=== PATIENT | female | born 1985 | race Asian ===

== ENCOUNTER 2017-06-30 19:00 | Inpatient (IN) | payer SELFPAY ==
[~2017-06-30] VITALS: Ht 154.9 cm; Wt 73.5 kg
[2017-06-30] MEDS ORDERED: TERBUTALINE 1 MG/ML VIAL SUBQ ONE ×2 (19:03→20:48)
[2017-06-30] MEDS ORDERED: NALBUPHINE HYDROCHLORIDE 10 MG/ML VIAL ONE ×2 (19:03→22:00)
[2017-06-30] MEDS ORDERED: METF500T2 PO (20:39)
[2017-06-30] MEDS ORDERED: OXYTOCIN 20 UNITS in LACTATED RINGERS 1,000 ML IV SCH ×2 (21:13→23:25)
[2017-06-30] MEDS ORDERED: NALBUPHINE 10 MG/ML AMP IVP PRN (21:15)
[2017-06-30] MEDS ORDERED: IBUPROFEN 800 MG TAB PO PRN ×2 (21:15→23:25)
[2017-06-30] MEDS ORDERED: CARBOPROST 250 MCG/ML AMP IM PRN (21:15)
[2017-06-30] MEDS ORDERED: TERBUTALINE 1 MG/ML VIAL SUBQ SCH (21:15)
[2017-06-30] MEDS ORDERED: METHYLERGONOVINE 0.2 MG/ML AMP IM PRN ×2 (21:15→23:25)
[2017-06-30] MEDS ORDERED: CITRIC ACID/SODIUM CITRATE 30 ML UDC PO ONE (21:20)
[2017-06-30] MEDS: LACTATED RINGERS 1,000 ML IV SCH ×2 (21:53→21:55)
[2017-06-30 22:18] LABS: CARBON DIOXIDE 17.1 mmol/L (21-32); CREATININE 1.3 mg/dL (0.6-1.3); POTASSIUM 3.1 mmol/L (3.5-5.1)
[2017-06-30 22:25] LABS: ALBUMIN 3.2 g/dL (3.4-5.0); TOTAL BILIRUBIN 0.4 mg/dL (0.0-1.0)
[2017-06-30 22:25] LABS: APPEARANCE,URINE CLEAR (CLEAR); BILIRUBIN,URINE NEGATIVE (NEGATIVE); BLOOD, URINE TRACE-L (NEGATIVE); COLOR,URINE YELLOW (YELLOW); LEUKOCYTE ESTERASE ,URINE NEGATIVE (NEGATIVE); NITRITE, URINE NEGATIVE (NEGATIVE); PH,URINE 5.5 (5.0-9.0); UGLUCOSE NEGATIVE (NEGATIVE)
[2017-06-30 22:43] VITALS: BP 119/63
[2017-06-30] MEDS ORDERED: TEMAZEPAM 15 MG CAP PO PRN (23:25)
[2017-06-30] MEDS ORDERED: MEASLES, MUMPS, AND RUBELLA 1 VIAL SQVAC PRN (23:25)
[2017-06-30] MEDS ORDERED: SIMETHICONE 80 MG TAB.CHEW PO PRN (23:25)
[2017-06-30] MEDS ORDERED: TRIMETHOBENZAMIDE 200 MG/2 ML SYR IM PRN (23:25)
[2017-06-30 23:53] LABS: RED BLOOD CELL COUNT(AUTO) 4.97 MIL/uL (4.20-5.40)
[2017-06-30 23:54] LABS: HEMOGLOBIN 15.2 g/dL (12.0-16.0); MEAN CORPUSCULAR HEMOGLOBIN 31 pg (27-31); MEAN CORPUSCULAR HGB CONC 34 g/dL (33-37); PLATELET COUNT (AUTO) 168 K/uL (140-450); RED CELL DISTRIBUTION WIDTH 12.9 % (11.6-13.7)
[2017-06-30 23:56] LABS: LYMPHOCYTES % (MANUAL) 2 % (20-46); MONOCYTES % (MANUAL) 4 % (5-12)
[2017-07-01] MEDS ORDERED: ceFAZolin 1,000 MG VIAL ONE (01:01)
[2017-07-01] MEDS ORDERED: TRIAMCINOLONE 40 MG/ML 5ML VIAL ONE (01:02)
[2017-07-01] MEDS ORDERED: OXYTOCIN 10 UNITS/ML VIAL ONE ×2 (01:02→09:55)
[2017-07-01] MEDS ORDERED: METHYLERGONOVINE 0.2 MG/ML AMP ONE (01:02)
[2017-07-01] MEDS ORDERED: MIDAZOLAM 2 MG/2 ML VIAL ONE (01:05)
[2017-07-01] MEDS ORDERED: MORPHINE PRES FREE 10 MG/10 ML AMP IV ONE (01:05)
[2017-07-01] MEDS ORDERED: BUPIVACAINE-MPF 0.75% 10 ML VIAL INJ ONE (01:10)
[2017-07-01] MEDS ORDERED: ONDANSETRON 4 MG/2 ML VIAL IVP PRN ×2 (01:55)
[2017-07-01] MEDS ORDERED: NALBUPHINE 10 MG/ML AMP IVP PRN (01:55)
[2017-07-01] MEDS ORDERED: NALOXONE 0.4 MG/ML VIAL IVP PRN ×3 (01:55)
[2017-07-01] MEDS ORDERED: diphenhydrAMINE 50 MG/ML VIAL IVP PRN ×2 (01:55)
[2017-07-01] MEDS ORDERED: MEPERIDINE 25 MG/ML SYR IVP PRN (01:55)
[2017-07-01] MEDS ORDERED: HYDROmorphone 1 MG/ML AMP IVP PRN (01:55)
[2017-07-01] MEDS: OXYTOCIN 20 UNITS in LACTATED RINGERS 1,000 ML IV SCH ×3 (02:10→17:25)
[2017-07-01 02:34] LABS: RBC,URINE 0-5 (RARE) /HPF (0-5); WBC,URINE 0-5 (RARE) /HPF (0-5)
[2017-07-01] MEDS ORDERED: ONDANSETRON 4 MG/2 ML VIAL ONE (02:34)
[2017-07-01] MEDS: KETOROLAC 30 MG/ML VIAL IM/IVP SCH ×3 (05:59→18:06)
--- NOTE | 2017-07-01 09:53 | NUR ---
PATIENT HAS BEEN SCREENED AND CATEGORIZED LOW NUTRITION RISK. PATIENT WILL BE SEEN WITHIN 7 DAYS OF ADMISSION. 07/07/[address]
[2017-07-01] MEDS: DOCUSATE SOD/SENNA 50/8.6 MG 1 TAB PO SCH (20:51)
[2017-07-02] MEDS: oxyCODONE/APAP 5/325 MG 1 TAB TAB PO PRN ×3 (02:10→14:17)
[2017-07-02 06:44] LABS: HEMOGLOBIN 11.7 g/dL (12.0-16.0); MEAN CORPUSCULAR HEMOGLOBIN 31 pg (27-31); MEAN CORPUSCULAR HGB CONC 34 g/dL (33-37); MEAN CORPUSCULAR VOLUME 91.8 fL (80-94); PLATELET COUNT (AUTO) 119 K/uL (140-450); RED BLOOD CELL COUNT(AUTO) 3.81 MIL/uL (4.20-5.40); RED CELL DISTRIBUTION WIDTH 13.2 % (11.6-13.7)
[2017-07-02 07:31] LABS: LYMPHOCYTES % (MANUAL) 15 % (20-46); MONOCYTES % (MANUAL) 5 % (5-12)
[2017-07-02 09:07] LABS: HEPATITIS B SURFACE ANTIGEN Negative (Negative)
[2017-07-02] MEDS: DOCUSATE SOD/SENNA 50/8.6 MG 1 TAB PO SCH (21:01)
[2017-07-02] MEDS: HYDROcodone/APAP 5/325 MG 1 TAB TAB PO PRN (21:51)
[2017-07-03] MEDS: HYDROcodone/APAP 5/325 MG 1 TAB TAB PO PRN ×2 (15:33→22:50)
[2017-07-03] MEDS ORDERED: ACETAMINOPHEN 325 MG TAB ONE (17:32)
[2017-07-03] MEDS: DOCUSATE SOD/SENNA 50/8.6 MG 1 TAB PO SCH (21:10)
== END 2017-07-04 13:25 | disposition home or self-care (01) | DRG 766 ==
LOC: MLD 19:00 → MFCC 07-01 03:00
PROVIDERS: ADMIT Obstetrics & Gynecology; ATTEND Obstetrics & Gynecology
PROC: 10D00Z0 Extraction of Products of Conception, High, Open Approach (ICD-10-PCS; principal; 2017-06-30)
DX: O34.211 Maternal care for low transverse scar from previous cesarean delivery (principal); O69.81X0 Labor and delivery complicated by cord around neck, without compression, not applicable or unspecified; Z37.0 Single live birth; Z3A.37 37 weeks gestation of pregnancy; Z28.21 Immunization not carried out because of patient refusal
CPT/HCPCS: 36415; 51702; 80053; 81001; 85025; 86592; 86762; 86886; 86900; 86901; 87340; J0690; J1885; J2210; J2250; J2270; J2300; J2405; J2590; J3105; J3301; J3490; J7060; J7120